=== PATIENT | female | born 1965 | race Caucasian/White ===

== ENCOUNTER 2017-11-21 22:56 | Emergency (ER) | payer MEDICAID ==
[~2017-11-21] VITALS: Ht 160 cm; Wt 110.0 kg
[~2017-11-21 22:56] MED LIST: HYDR-3513; SUMA100T
[2017-11-21] MEDS ORDERED: MORPHINE SULFATE 2 MG/ML CPJ (NOT FOR IM USE) IV ONE (23:45)
[2017-11-22] MEDS ORDERED: MORPHINE SULFATE 4 MG/ML CPJ (NOT FOR IM USE) IV SCH (00:12)
[2017-11-22] MEDS ORDERED: TETANUS, DIPHTHERIA, PERTUSSIS VAC/PF 0.5ML (>7YR OLD) IM ONE (01:45)
[2017-11-22] MEDS ORDERED: BACITRACIN ZINC OINT UDPKT TOP ONE (02:45)
[2017-11-22 03:05] VITALS: BP 115/64
[2017-11-22] MEDS ORDERED: CEPHALEXIN 500MG CAPSULE PO ONE (04:00)
== END 2017-11-22 03:19 | disposition home or self-care (01) ==
LOC: ER 23:34
DX: S68.625A Partial traumatic transphalangeal amputation of left ring finger, initial encounter (principal); S62.635B Displaced fracture of distal phalanx of left ring finger, initial encounter for open fracture; W23.0XXA Caught, crushed, jammed, or pinched between moving objects, initial encounter; Y93.89 Activity, other specified; Y92.098 Other place in other non-institutional residence as the place of occurrence of the external cause; Z23 Encounter for immunization
CPT/HCPCS: 73130; 90471; 90715; 96374; 99284; J2270; Z7610

== ENCOUNTER 2021-05-08 21:57 | Emergency (ER) | payer MEDICAID ==
[~2021-05-08] VITALS: Ht 160 cm; Wt 91.0 kg
[2021-05-09 00:03] LABS: BASOPHILS % 1.2 % (0.0-2.0); EOSINOPHILS % 2.5 % (0.0-5.0); HEMATOCRIT. 38.9 % (36.0-48.0); LYMPHOCYTES % 35.4 % (20.0-50.0); MEAN CORPUSCULAR HEMOGLOBIN 27.4 pg (28.0-32.0); MEAN CORPUSCULAR VOLUME 82.3 fL (81.0-99.0); MEAN PLATELET VOLUME 7.9 fl (7.4-10.4); MONOCYTES % 5.3 % (2.0-8.0); NEUTROPHILS % 55.6 % (40.0-76.0); PLATELET 206 x1000/uL (130-400); RED BLOOD CELL COUNT 4.72 mill/uL (4.2-5.4); RED CELL DISTRIBUTION WIDTH 16.1 % (11.6-14.6)
[2021-05-09 00:09] LABS: CHLORIDE 105 mEq/L (98-107)
[2021-05-09] MEDS ORDERED: MORPHINE SULFATE 4 MG/ML CPJ (NOT FOR IM USE) IV STA (00:39)
[2021-05-09] MEDS ORDERED: ONDANSETRON HCL 4MG/2ML INJ IV STA (00:39)
[2021-05-09] MEDS ORDERED: MORPHINE SULFATE 2 MG/ML CPJ (NOT FOR IM USE) IV STA (01:00)
[2021-05-09] MEDS ORDERED: KETOROLAC 15MG/ML VIAL IV ONE (03:00)
[2021-05-09 04:39] LABS: COLOR URINE YELLOW (YELLOW); KETONES URINE NEGATIVE (NEGATIVE); LEUKOCYTE ESTERASE URINE 1+ (NEGATIVE); NITRITE URINE NEGATIVE (NEGATIVE); OCCULT BLOOD URINE NEGATIVE (NEGATIVE); PROTEIN URINE NEGATIVE (NEGATIVE); SPECIFIC GRAVITY URINE 1.007 (1.005-1.030)
[2021-05-09 04:40] LABS: CLARITY URINE CLEAR (CLEAR)
[2021-05-09] MEDS ORDERED: IBUP-2029 MT (05:00)
[2021-05-09] MEDS ORDERED: NITR-87 MT (05:00)
[2021-05-09 05:34] VITALS: BP 78/66
== END 2021-05-09 05:53 | disposition home or self-care (01) ==
LOC: ER 21:57
DX: N39.0 Urinary tract infection, site not specified (principal); S70.01XA Contusion of right hip, initial encounter; I49.9 Cardiac arrhythmia, unspecified; Z88.8 Allergy status to other drugs, medicaments and biological substances; Z88.9 Allergy status to unspecified drugs, medicaments and biological substances; Z98.890 Other specified postprocedural states; W18.30XA Fall on same level, unspecified, initial encounter; Y93.89 Activity, other specified; Y92.89 Other specified places as the place of occurrence of the external cause; Y99.8 Other external cause status
CPT/HCPCS: 36415; 74176; 80053; 81003; 83690; 85025; 93005; 96374; 96375; 99285; J1885; J2270; J2405